=== PATIENT | female | born 2000 | race African-American/Black ===

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

== ENCOUNTER 2018-02-23 15:05 | Inpatient (IN) | payer OTHER ==
[2018-02-23] MEDS ORDERED: NORMAL SALINE 1000 ML 1,000 ML IV ONE (15:21)
[2018-02-23] MEDS ORDERED: ONDANSETRON HCL INJ/PF 4 MG/2 ML SDV IV ONE (15:21)
[2018-02-23] MEDS ORDERED: KETOROLAC TROMETHAMINE INJ/PF 30 MG/1 ML SDV IV ONE (15:21)
--- NOTE | 2018-02-23 15:22 | ER Document Report ---
Addendum entered and electronically signed by ARMAAN LITTLEJOHN PA-C 03/01/18 01:11: Discharge - Discharge Clinical Impression: Nausea vomiting and diarrhea, Cough, Viral illness Condition: Stable Disposition: ADMITTED INPATIENT Addendum entered and electronically signed by SARA MOSES NP 02/25/18 20:48: Discharge - Discharge Clinical Impression: Nausea vomiting and diarrhea, Cough, Viral illness Condition: Stable Disposition: ADMITTED INPATIENT Original Note: ED General - General Mode of Arrival: Ambulatory Information source: Patient TRAVEL OUTSIDE OF THE [place] IN LAST 30 DAYS: No - HPI Onset: Other - 3 weeks Onset/Duration: Persistent Quality of pain: Achy, Pressure Pain Level: 3 Associated symptoms: Body/muscle aches, Chest pain, Productive cough, Diarrhea, Fever, Vomiting. denies: Leg swelling, Nausea, Shortness of breath Exacerbated by: Denies Relieved by: Denies Similar symptoms previously: No Recently seen / treated by doctor: No <SARA MOSES - Last Filed: 02/23/18 21:12> <ARMAAN LITTLEJOHN - Last Filed: 02/24/18 00:33> - General Chief Complaint: Flu Symptoms Stated Complaint: COUGH,CONGESTION,VOMITING Time Seen by Provider: 02/23/18 15:11 Notes: Patient presents complaining of nausea vomiting diarrhea for the past 3 weeks. Yesterday patient had a fever of 102. Patient reports cough that just started as well. Patient does complain of some anterior chest tenderness. (SARA MOSES) - Related Data Allergies/Adverse Reactions: No Known Allergies Allergy (Verified 04/18/17 14:06) Past Medical History - General Information source: Patient - Social History Smoking Status: Never Smoker Frequency of alcohol use: None Drug Abuse: None Occupation: None Family History: Arthritis, DM, Hypertension, Other - afib, ards - Past Medical History Cardiac Medical History: Denies: Hx Coronary Artery Disease, Hx Heart Attack, Hx Hypertension Pulmonary Medical History: Reports: Hx Asthma - QVAR Denies: Hx Bronchitis, Hx COPD, Hx Pneumonia Neurological Medical History: Denies: Hx Cerebrovascular Accident, Hx Seizures Renal/ Medical History: Denies: Hx Peritoneal Dialysis GI Medical History: Reports: Hx Gastroesophageal Reflux Disease Musculoskeletal Medical History: Denies Hx Arthritis, Reports Hx Musculoskeletal Trauma - ankle Skin Medical History: Reports Hx Eczema Traumatic Medical History: Reports: Hx Fractures - ankle Past Surgical History: Reports: Hx Adenoidectomy, Hx Oral Surgery, Hx Tonsillectomy - Immunizations Immunizations up to date: Yes Hx Diphtheria, Pertussis, Tetanus Vaccination: Yes <SARA MOSES - Last Filed: 02/23/18 21:12> Review of Systems - Review of Systems Constitutional: Fever EENT: No symptoms reported Cardiovascular: Chest pain. denies: Dizziness, Lightheaded Respiratory: Cough, Sputum. denies: Short of breath Gastrointestinal: Diarrhea, Nausea, Vomiting. denies: Abdominal pain Genitourinary: No symptoms reported. denies: Dysuria Female Genitourinary: No symptoms reported Musculoskeletal: No symptoms reported. denies: Leg swelling Skin: No symptoms reported Hematologic/Lymphatic: No symptoms reported Neurological/Psychological: No symptoms reported. denies: Headaches <SARA MOSES - Last Filed: 02/23/18 21:12> Physical Exam - General General appearance: Appears well, Alert In distress: None - HEENT Head: Normocephalic, Atraumatic Eyes: Normal Conjunctiva: Normal Nasal: Normal Mouth/Lips: Normal Mucous membranes: Dry Pharynx: Erythema. No: Exudate, Peritonsillar abscess, Tonsillar hypertrophy Neck: Normal, Supple. No: Lymphadenopathy, Meningismus - Respiratory Respiratory status: No respiratory distress Chest status: Pain with cough Breath sounds: Productive cough. No: Rales, Rhonchi, Stridor, Wheezing Chest palpation: Normal. No: Tender - Cardiovascular Rhythm: Regular, Tachycardia Heart sounds: S1 appreciated, S2 appreciated Murmur: No - Abdominal Inspection: Morbidly Obese Distension: No distension Bowel sounds: Normal Tenderness: Nontender Organomegaly: No organomegaly - Back Back: Normal, Nontender. No: CVA tenderness - Extremities General upper extremity: Normal inspection, Normal strength General lower extremity: Normal inspection, Normal strength - Neurological Neuro grossly intact: Yes Cognition: Normal Judd Coma Scale Eye Opening: Spontaneous [place] Coma Scale Verbal: Oriented [place] Coma Scale Motor: Obeys Commands [place] Coma Scale Total: 15 - Psychological Associated symptoms: Normal affect, Normal mood - Skin Skin Temperature: Warm Skin Moisture: Dry Skin Color: Normal <[email or web address] - Last Filed: 02/23/18 21:12> - Vital signs Vitals: Temp Pulse Resp BP Pulse Ox 98.5 F 125 H 20 149/94 H 100 02/23/18 15:10 02/23/18 15:10 02/23/18 15:10 02/23/18 15:10 02/23/18 15:10 Course - Laboratory Result Diagrams: 02/23/18 17:35 02/23/18 17:35 - Diagnostic Test Radiology reviewed: Reports reviewed - EKG Interpretation by Me EKG shows normal: Sinus rhythm Rate: Tachycardia When compared to previous EKG there are: Previous EKG unavailable <SARA MOSES - Last Filed: 02/23/18 21:12> - Laboratory Result Diagrams: 02/23/18 17:35 02/23/18 17:35 <ARMAAN LITTLEJOHN - Last Filed: 02/24/18 00:33> - Re-evaluation Re-evalutation: 02/23/18 18:51 Patient's abdomen soft nontender. Patient nontoxic in appearance. No vomiting during ER stay. Chest x-ray reviewed, no concern for pneumonia. Will treat symptomatically at this time with good return precautions. 02/23/18 19:56 No concern for PE at this time. Patient with no elevation in d-dimer. Tachycardia treated with additional liter of IV fluids at this time. Suspect likely viral etiology at this time. 02/23/18 21:07 She continues tachycardic prior to discharge. Consulted with Dr. Merrill regarding patient presentation, reviewed diagnostic evaluation. Recommends offering discharged with outpatient follow-up tomorrow for recheck or adding on cardiac enzyme testing to evaluate for possible pericarditis or myocarditis. Recommends that if patient has abnormal cardiac enzymes or BNP that she should likely be admitted for echocardiogram to be performed. Discussed this with patient, patient agreeable with staying and waiting for additional lab test to be performed at this time. 02/23/18 21:17 Bedside report and handoff given to David Owen. (SARA MOSES) 02/23/18 22:13 Troponin was negative. BNP 156, unremarkable. TSH undetectable. T3/T4 obtained and T4 level was 7 and free T3 level was greater than 22.8. Consulted Dr. Solis, on-call hospitalist he agreed to accept patient for full admission to telemetry unit. 02/24/18 00:33 (ARMAAN LITTLEJOHN) - Vital Signs Vital signs: Temp Pulse Resp BP Pulse Ox 98.0 F 105 H 20 147/90 H 99 02/24/18 00:27 02/24/18 00:27 02/23/18 20:28 02/24/18 00:27 02/24/18 00:27 - Laboratory Laboratory results interpreted by me: 02/23/18 02/23/18 02/23/18 17:35 17:35 17:35 MCV 77 L MCH 25.4 L RDW 14.2 H Chloride 109 H Creatinine 0.37 L AST 37 H ALT 58 H NT-Pro-B Natriuret Pep 176 H TSH Free T4 Free T3 pg/mL Urine Ketones Urine Ascorbic Acid 02/23/18 02/23/18 02/23/18 17:35 17:35 17:56 MCV MCH RDW Chloride Creatinine AST ALT NT-Pro-B Natriuret Pep TSH < 0.01 L Free T4 6.87 H Free T3 pg/mL > 22.80 H Urine Ketones 20 H Urine Ascorbic Acid 40 H Labs- Entire Visit 02/23/18 02/23/18 02/23/18 16:25 16:25 17:35 WBC 9.4 RBC 5.27 Hgb 13.4 Hct 40.3 MCV 77 L MCH 25.4 L MCHC 33.3 RDW 14.2 H Plt Count 312 Seg Neutrophils % 59.2 Lymphocytes % 26.8 Monocytes % 9.5 Eosinophils % 3.9 Basophils % 0.6 Absolute Neutrophils 5.6 Absolute Lymphocytes 2.5 Absolute Monocytes 0.9 Absolute Eosinophils 0.4 Absolute Basophils 0.1 Sodium Potassium Chloride Carbon Dioxide Anion Gap BUN Creatinine Est GFR ( Amer) Est GFR (Non-Af Amer) Glucose Calcium Total Bilirubin Direct Bilirubin Neonat Total Bilirubin Neonat Direct Bilirubin Neonat Indirect Bili AST ALT Alkaline Phosphatase Total Protein Albumin Lipase Serum HCG, Qual Urine Color Urine Appearance Urine pH Ur Specific [place] Urine Protein Urine Glucose (UA) Urine Ketones Urine Blood Urine Nitrite Urine Bilirubin Urine Urobilinogen Ur Leukocyte Esterase Urine WBC (Auto) Urine RBC (Auto) Squamous Epi Cells Auto Urine Mucus (Auto) Urine Ascorbic Acid Influenza A (Rapid) NEGATIVE Influenza B (Rapid) NEGATIVE Group A Strep Rapid NEGATIVE 02/23/18 02/23/18 02/23/18 17:35 17:35 17:56 WBC RBC Hgb Hct MCV MCH MCHC RDW Plt Count Seg Neutrophils % Lymphocytes % Monocytes % Eosinophils % Basophils % Absolute Neutrophils Absolute Lymphocytes Absolute Monocytes Absolute Eosinophils Absolute Basophils Sodium 141.4 Potassium 4.2 Chloride 109 H Carbon Dioxide 23 Anion Gap 9 BUN 11 Creatinine 0.37 L Est GFR ( Amer) > 60 Est GFR (Non-Af Amer) > 60 Glucose 85 Calcium 9.6 Total Bilirubin 0.4 Direct Bilirubin 0.2 Neonat Total Bilirubin Not Reportable Neonat Direct Bilirubin Not Reportable Neonat Indirect Bili Not Reportable AST 37 H ALT 58 H Alkaline Phosphatase 82 Total Protein 6.7 Albumin 3.9 Lipase 88.0 Serum HCG, Qual NEGATIVE Urine Color YELLOW Urine Appearance SLIGHTLY-CLOUDY Urine pH 6.0 Ur Specific [place] 1.024 Urine Protein NEGATIVE Urine Glucose (UA) NEGATIVE Urine Ketones 20 H Urine Blood NEGATIVE Urine Nitrite NEGATIVE Urine Bilirubin NEGATIVE Urine Urobilinogen NEGATIVE Ur Leukocyte Esterase NEGATIVE Urine WBC (Auto) 4 Urine RBC (Auto) 1 Squamous Epi Cells Auto 12 Urine Mucus (Auto) RARE Urine Ascorbic Acid 40 H Influenza A (Rapid) Influenza B (Rapid) Group A Strep Rapid (SARA MOSES) - EKG Interpretation by Me Additional EKG results interpreted by me: 02/23/18 21:[address] elevation concerning for possible repolarization pattern. QTC [id number] (SARA MOSES) Discharge <SARA MOSES - Last Filed: 02/23/18 21:12> - Discharge Unit Admitted: Telemetry <ARMAAN LITTLEJOHN - Last Filed: 02/24/18 00:33> - Discharge Clinical Impression: Nausea vomiting and diarrhea, Cough, Viral illness Condition: Stable Disposition: ADMITTED INPATIENT Instructions: Acetaminophen, Antinausea Medication ([facility]), Diarrhea, Nonspecific ([facility]), Intravenous (IV) Fluids ([facility]), Viral Syndrome ([facility]), Vomiting ([facility]) Additional Instructions: Return immediately for any new or worsening symptoms Followup with your primary care provider, call tomorrow to make a followup appointment Prescriptions: Naproxen [Naprosyn 250 Nmg Tablet] 1 tab PO BID #14 tablet Ondansetron HCl [Zofran 4 mg Tablet] 1 - 2 tab PO Q6 PRN #15 tablet PRN Reason: [facility] - Follow up as needed
--- NOTE | 2018-02-23 15:49 | RADIOLOGY REPORT (SQ) ---
EXAM DESCRIPTION: CHEST 2 VIEWS COMPLETED DATE/TIME: 02/23/2018 3:39 pm REASON FOR STUDY: fever, cough COMPARISON: None. TECHNIQUE: Frontal and lateral radiographic views of the chest acquired. NUMBER OF VIEWS: Two view. LIMITATIONS: None. FINDINGS: LUNGS AND PLEURA: No opacities, masses or pneumothorax. No pleural effusion. MEDIASTINUM AND HILAR STRUCTURES: No masses or contour abnormalities. HEART AND VASCULAR STRUCTURES: Heart normal size. No evidence for failure. BONES: No acute findings. HARDWARE: None in the chest. OTHER: No other significant finding. IMPRESSION: NO SIGNIFICANT RADIOGRAPHIC FINDING IN THE CHEST. TECHNICAL DOCUMENTATION: JOB ID: [id number] [employer]- All Rights Reserved Reading location - IP/workstation name: [email or web address]
[2018-02-23 16:56] LABS: A TYPE INFLUENZA AG NEGATIVE (NEGATIVE); B INFLUENZA AG NEGATIVE (NEGATIVE)
[2018-02-23 17:45] LABS: ABSOLUTE BASOPHILS # (AUTO) 0.1 10^3/uL (0.0-0.2); ABSOLUTE EOSINOPHILS # (AUTO) 0.4 10^3/uL (0.0-0.6); ABSOLUTE LYMPHOCYTES (AUTO) 2.5 10^3/uL (0.5-4.7); ABSOLUTE MONOCYTES (AUTO) 0.9 10^3/uL (0.1-1.4); ABSOLUTE NEUT (AUTO) 5.6 10^3/uL (1.7-8.2); BASOPHILS % (AUTO) 0.6 % (0-2); EOSINOPHILS % (AUTO) 3.9 % (0-6); HEMATOCRIT 40.3 % (36.0-47.0); HEMOGLOBIN 13.4 g/dL (12.0-15.5); LYMPHOCYTES % (AUTO) 26.8 % (13-45); MEAN CORPUSCULAR HEMOGLOBIN 25.4 pg (27.0-33.4); MEAN CORPUSCULAR HGB CONC 33.3 g/dL (32.0-36.0); MEAN CORPUSCULAR VOLUME 77 fl (80-97); MONOCYTES % (AUTO) 9.5 % (3-13); PLATELET COUNT 312 10^3/uL (150-450); RED BLOOD COUNT 5.27 10^6/uL (3.72-5.28); RED CELL DISTRIBUTION WIDTH 14.2 % (11.5-14.0); SEGMENTED NEUTROPHILS % (AUTO) 59.2 % (42-78); TOTAL CELLS COUNTED % (AUTO) 100 %; WHITE BLOOD COUNT 9.4 10^3/uL (4.0-10.5)
[2018-02-23 18:05] LABS: ALANINE AMINOTRANSFERASE 58 U/L (9-52); ALBUMIN 3.9 g/dL (3.5-5.0); ALKALINE PHOSPHATASE 82 U/L (38-126); ANION GAP 9 (5-19); ASPARTATE AMINO TRANSFERASE 37 U/L (14-36); BILIRUBIN,DIRECT 0.2 mg/dL (0.0-0.4); BILIRUBIN,TOTAL 0.4 mg/dL (0.2-1.3); BLOOD UREA NITROGEN 11 mg/dL (7-20); CALCIUM 9.6 mg/dL (8.4-10.2); CARBON DIOXIDE 23 mmol/L (22-30); CHLORIDE 109 mmol/L (98-107); GLUCOSE 85 mg/dL (75-110); POTASSIUM 4.2 mmol/L (3.6-5.0); SODIUM 141.4 mmol/L (137-145); TOTAL PROTEIN 6.7 g/dL (6.3-8.2)
[2018-02-23 18:11] LABS: APPEARANCE,URINE SLIGHTLY-CLOUDY; BILIRUBIN,URINE NEGATIVE (NEGATIVE); COLOR,URINE YELLOW; GLUCOSE, URINE NEGATIVE (NEGATIVE); KETONES,URINE 20 mg/dL (NEGATIVE); LEUKOCYTE ESTERASE,URINE NEGATIVE (NEGATIVE); NITRITE,URINE NEGATIVE (NEGATIVE); PROTEIN,URINE NEGATIVE (NEGATIVE); URINE SPECIFIC GRAVITY 1.024; UROBILINOGEN,URINE NEGATIVE mg/dL (<2.0)
[2018-02-23] MEDS ORDERED: RINGERS SOLUTION,LACTATED 1,000 ML IV ONE (18:59)
[2018-02-23] MEDS ORDERED: HYDROCODONE/ACETAMINOPHEN 5-325 MG TABLET PO ONE (19:05)
--- NOTE | 2018-02-23 19:26 | EKG REPORT ---
SEVERITY:- ABNORMAL ECG - SINUS TACHYCARDIA PROBABLE LEFT VENTRICULAR HYPERTROPHY ST ELEV, PROBABLE NORMAL EARLY REPOL PATTERN : Confirmed by: Candy Kearney 23-Feb-2018 19:25:23
[2018-02-23 21:52] LABS: NT PRO BNP 176 pg/mL (<125)
[2018-02-23 21:53] LABS: CREATINE KINASE MB < 0.22 ng/mL (<4.55); TROPONIN I < 0.012 ng/mL
[2018-02-23 23:00] LABS: FREE T4 (FREE THYROXINE) 6.87 ng/dL (0.78-2.19)
[2018-02-23 23:06] LABS: FREE T3 > 22.80 pg/mL (2.77-5.27)
[2018-02-24] MEDS ORDERED: NORMAL SALINE 1000 ML 1,000 ML IV ONE (00:27)
[2018-02-24] MEDS ORDERED: ACETAMINOPHEN 325 MG TABLET PO PRN (00:42)
[2018-02-24] MEDS ORDERED: MAG HYDROX/AL HYDROX/SIMETH SUSP 30 ML UDCUP PO PRN (00:42)
[2018-02-24] MEDS ORDERED: ONDANSETRON HCL INJ/PF 4 MG/2 ML SDV IV PRN (00:42)
[2018-02-24] MEDS ORDERED: PROPRANOLOL HCL 20 MG TABLET PO ONE (00:45)
[2018-02-24 01:02] LABS: URINE AMPHETAMINES SCREEN NEGATIVE; URINE BARBITURATES SCREEN NEGATIVE; URINE BENZODIAZEPINES SCREEN NEGATIVE; URINE COCAINE SCREEN NEGATIVE; URINE MARIJUANA (THC) SCREEN NEGATIVE; URINE METHADONE SCREEN NEGATIVE; URINE PHENCYCLIDINE SCREEN NEGATIVE
[2018-02-24] MEDS: HEPARIN SOD (PORCINE) 5,000 UNIT/ML 1 ML SYRINGE SUBCUT SCH ×3 (05:15→22:49)
[2018-02-24] MEDS: METHIMAZOLE 5 MG TABLET PO SCH ×3 (05:15→22:51)
--- NOTE | 2018-02-24 05:31 | PDOC H&P ---
History of Present Illness Admission Date/PCP: 02/24/18 01:51 Patient complains of: Viral prodrome History of Present Illness: KARI MIRZA is a 18 year old female with past medical history of asthma, GERD and eczema. She presents with 3 weeks of viral prodrome with arthralgia and nausea developed fever prompting evaluation in the emergency room where she has an unremarkable workup but during evaluation of tachycardia is found to have an undetected TSH and a T3 greater than 22. She is referred to the hospitalist for admission. She denies palpitations, heat or cold intolerance but has an obvious goiter. She denies family history, recreational drugs, [id number] medications, diet or weight loss supplementation. Past Medical History Cardiac Medical History: Denies: Coronary Artery Disease, Myocardial Infarction, Hypertension Pulmonary Medical History: Reports: Asthma - QVAR Denies: Bronchitis, Chronic Obstructive Pulmonary Disease (COPD), Pneumonia Neurological Medical History: Denies: Seizures GI Medical History: Reports: Gastroesophageal Reflux Disease Musculoskeltal Medical History: Denies: Arthritis Skin Medical History: Reports: Eczema Hematology: Denies: Anemia Past Surgical History Past Surgical History: Reports: Adenoidectomy, Tonsillectomy Social History Information Source: Patient Smoking Status: Never Smoker Frequency of Alcohol Use: None Hx Recreational Drug Use: No Drugs: None Hx Prescription Drug Abuse: No - Advance Directive Resuscitation Status: Full Code Family History Family History: Arthritis, DM, Hypertension, Other - afib, ards Parental Family History Reviewed: Yes Children Family History Reviewed: Yes Sibling(s) Family History Reviewed.: Yes Medication/Allergy Home Medications: Albuterol Sulfate [Proair Hfa] 2 puff IN Q6HP PRN 10/30/16 Beclomethasone Dipropionate [Qvar] 160 mcg IN Q12 10/30/16 Montelukast Sodium [Singulair 10 mg Tablet] 10 mg PO DAILY 10/30/16 Cetirizine HCl [Zyrtec] 10 mg PO DAILY 01/20/17 Cyclobenzaprine HCl [Flexeril 10 mg Tablet] 10 mg PO TIDP PRN #15 tab 04/18/17 Etodolac [Lodine] 400 mg PO BID #14 tablet 04/18/17 Naproxen [Naprosyn 250 Nmg Tablet] 1 tab PO BID #14 tablet 02/23/18 Ondansetron HCl [Zofran 4 mg Tablet] 1 - 2 tab PO Q6 PRN #15 tablet 02/23/18 Allergies/Adverse Reactions: No Known Allergies Allergy (Verified 04/18/17 14:06) Review of Systems Constitutional: PRESENT: as per HPI, fatigue, fever(s). ABSENT: anorexia, chills Eyes: ABSENT: visual disturbances Ears: ABSENT: hearing changes Cardiovascular: ABSENT: chest pain, dyspnea on exertion, edema, orthropnea, palpitations Respiratory: ABSENT: cough, hemoptysis Gastrointestinal: ABSENT: abdominal pain, constipation, diarrhea, hematemesis, hematochezia, nausea, vomiting Genitourinary: ABSENT: dysuria, hematuria Musculoskeletal: ABSENT: joint swelling Integumentary: ABSENT: rash, wounds Neurological: ABSENT: abnormal gait, abnormal speech, confusion, dizziness, focal weakness, syncope Psychiatric: ABSENT: anxiety, depression, homidical ideation, suicidal ideation Endocrine: ABSENT: cold intolerance, heat intolerance, polydipsia, polyuria Hematologic/Lymphatic: ABSENT: easy bleeding, easy bruising Physical Exam Vital Signs: Temp Pulse Resp BP Pulse Ox 98.0 F 121 H 30 H 147/90 H 99 02/24/18 00:27 02/24/18 03:58 02/24/18 04:00 02/24/18 00:27 02/24/18 04:00 Intake & Output 02/22/18 02/23/18 02/24/18 11:59 11:59 11:59 Intake Total 3000 Balance 3000 Weight 91 kg General appearance: PRESENT: cooperative, mild distress, obese. ABSENT: disheveled Head exam: PRESENT: atraumatic, normocephalic Eye exam: PRESENT: conjunctiva pink, EOMI, PERRLA. ABSENT: scleral icterus Ear exam: PRESENT: normal external ear exam Mouth exam: PRESENT: moist, tongue midline Neck exam: PRESENT: full ROM, thyromegaly. ABSENT: JVD, lymphadenopathy, tenderness, tracheal deviation Respiratory exam: PRESENT: clear to auscultation corie. ABSENT: rales, rhonchi, wheezes Cardiovascular exam: PRESENT: RRR, tachycardia. ABSENT: diastolic murmur, rubs, systolic murmur Pulses: PRESENT: normal dorsalis pedis pul Vascular exam: PRESENT: normal capillary refill GI/Abdominal exam: PRESENT: normal bowel sounds, soft. ABSENT: distended, guarding, mass, organolmegaly, rebound, tenderness Rectal exam: PRESENT: deferred Extremities exam: PRESENT: full ROM. ABSENT: calf tenderness, clubbing, pedal edema Neurological exam: PRESENT: alert, awake, oriented to person, oriented to place, oriented to time, oriented to situation, CN II-XII grossly intact. ABSENT: motor sensory deficit Psychiatric exam: PRESENT: appropriate affect, normal mood. ABSENT: homicidal ideation, suicidal ideation Skin exam: PRESENT: dry, intact, warm. ABSENT: cyanosis, rash Results Laboratory Results: 02/23/18 17:35 02/23/18 17:35 02/23/18 02/23/18 02/23/18 17:35 17:35 17:35 WBC 9.4 RBC 5.27 Hgb 13.4 Hct 40.3 MCV 77 L MCH 25.4 L MCHC 33.3 RDW 14.2 H Plt Count 312 Seg Neutrophils % 59.2 Lymphocytes % 26.8 Monocytes % 9.5 Eosinophils % 3.9 Basophils % 0.6 Absolute Neutrophils 5.6 Absolute Lymphocytes 2.5 Absolute Monocytes 0.9 Absolute Eosinophils 0.4 Absolute Basophils 0.1 Sodium 141.4 Potassium 4.2 Chloride 109 H Carbon Dioxide 23 Anion Gap 9 BUN 11 Creatinine 0.37 L Est GFR ( Amer) > 60 Est GFR (Non-Af Amer) > 60 Glucose 85 Calcium 9.6 Total Bilirubin 0.4 AST 37 H ALT 58 H Alkaline Phosphatase 82 C-Reactive Protein Total Protein 6.7 Albumin 3.9 Lipase 88.0 TSH Free T4 Free T3 pg/mL Serum HCG, Qual NEGATIVE Urine Color Urine Appearance Urine pH Ur Specific [place] Urine Protein Urine Glucose (UA) Urine Ketones Urine Blood Urine Nitrite Ur Leukocyte Esterase Urine WBC (Auto) Urine RBC (Auto) 02/23/18 02/23/18 02/23/18 17:35 17:35 17:35 WBC RBC Hgb Hct MCV MCH MCHC RDW Plt Count Seg Neutrophils % Lymphocytes % Monocytes % Eosinophils % Basophils % Absolute Neutrophils Absolute Lymphocytes Absolute Monocytes Absolute Eosinophils Absolute Basophils Sodium Potassium Chloride Carbon Dioxide Anion Gap BUN Creatinine Est GFR ( Amer) Est GFR (Non-Af Amer) Glucose Calcium Total Bilirubin AST ALT Alkaline Phosphatase C-Reactive Protein 17.4 H Total Protein Albumin Lipase TSH < 0.01 L Free T4 6.87 H Free T3 pg/mL > 22.80 H Serum HCG, Qual Urine Color Urine Appearance Urine pH Ur Specific [place] Urine Protein Urine Glucose (UA) Urine Ketones Urine Blood Urine Nitrite Ur Leukocyte Esterase Urine WBC (Auto) Urine RBC (Auto) 02/23/18 17:56 WBC RBC Hgb Hct MCV MCH MCHC RDW Plt Count Seg Neutrophils % Lymphocytes % Monocytes % Eosinophils % Basophils % Absolute Neutrophils Absolute Lymphocytes Absolute Monocytes Absolute Eosinophils Absolute Basophils Sodium Potassium Chloride Carbon Dioxide Anion Gap BUN Creatinine Est GFR ( Amer) Est GFR (Non-Af Amer) Glucose Calcium Total Bilirubin AST ALT Alkaline Phosphatase C-Reactive Protein Total Protein Albumin Lipase TSH Free T4 Free T3 pg/mL Serum HCG, Qual Urine Color YELLOW Urine Appearance SLIGHTLY-CLOUDY Urine pH 6.0 Ur Specific [place] 1.024 Urine Protein NEGATIVE Urine Glucose (UA) NEGATIVE Urine Ketones 20 H Urine Blood NEGATIVE Urine Nitrite NEGATIVE Ur Leukocyte Esterase NEGATIVE Urine WBC (Auto) 4 Urine RBC (Auto) 1 02/23/18 02/23/18 17:35 17:35 Creatine Kinase 54 CK-MB (CK-2) < 0.22 Troponin I < 0.012 NT-Pro-B Natriuret Pep 176 H Impressions: Chest X-Ray 02/23/18 15:20 IMPRESSION: NO SIGNIFICANT RADIOGRAPHIC FINDING IN THE CHEST. Assessment & Plan - Diagnosis (1) Graves disease Is this a current diagnosis for this admission?: Yes Plan: Propanolol, methimazole, symptomatic management, follow-up radioiodine uptake, thyroid ultrasound, 2D echo. Outpatient endocrinology referral (2) GERD (gastroesophageal reflux disease) Is this a current diagnosis for this admission?: Yes Plan: Proton pump inhibitor. - Time Time Spent: 50 to 70 Minutes
[2018-02-24] MEDS: LANSOPRAZOLE 30 MG TAB.RAP.DR PO SCH ×2 (06:57→17:19)
[2018-02-24] MEDS: LEVALBUTEROL HCL NEB 1.25 MG/3 ML AMPUL NEB SCH ×2 (08:58→16:06)
[2018-02-24] MEDS: PROPRANOLOL HCL 20 MG TABLET PO SCH ×2 (09:33→22:50)
[2018-02-24] MEDS: DOCUSATE SODIUM 100 MG CAPSULE PO SCH ×2 (09:33→17:19)
--- NOTE | 2018-02-24 10:10 | RADIOLOGY REPORT (SQ) ---
EXAM DESCRIPTION: U/S THYROID/SFT TISS HD NECK COMPLETED DATE/TIME: 02/24/2018 4:50 am REASON FOR STUDY: graves goiter COMPARISON: None. TECHNIQUE: Dynamic and static cruz-scale images acquired of the thyroid gland. Selected additional c olor/power Doppler images recorded. All images stored to PACS. LIMITATIONS: None. FINDINGS: RIGHT LOBE: 5.8 x 2.7 x 2.8 cm. Very heterogeneous parenchyma with generally nodular cont ours. No cystic or solid masses. LEFT LOBE: 5.9 x 2.5 x 2.6 cm. Very heterogeneous parenchyma with generally nodular contours. No cy stic or solid masses. ISTHMUS: 1.4 cm thickness. Heterogeneous echo pattern. No cystic or solid masses. OTHER: No other significant finding. IMPRESSION: 1. Enlarged heterogeneous appearing thyroid. No discrete mass identified. TECHNICAL DOCUMENTATION: JOB ID: [id number] [employer]- All Rights Reserved Reading location - IP/workstation name: [email or web address]
[2018-02-24] MEDS ORDERED: BECLOMETHASONE DIPROPIONATE IH SCH ×2 (14:00→18:00)
--- NOTE | 2018-02-24 16:57 | Progress Note ---
Provider Note Provider Note: The patient is a 18-year-old female with a past medical history of asthma, GERD, and eczema who was admitted overnight by the [employer] OPERATOR for hyperthyroidism presumed to be Graves' disease. Overnight events, nursing notes, vital signs, laboratory workup, and plan of care as established by the previous provider were reviewed. Agree with the plan of care as set forth. (1) Graves disease Undetectable TSH, free T4 6.87, free T3 >22.80 ESR 27, CRP 17.4 Thyroid U/S demonstrated an enlarged heterogeneous appearing thyroid with no discrete masses identified. Echocardiogram has been completed; finalized report is pending. Radioiodine uptake study underway. Thyroid antibodies pending. Continue propanolol, methimazole, and symptomatic management. Outpatient endocrinology referral. (2) GERD (gastroesophageal reflux disease) Proton pump inhibitor. (3) Asthma Resume the patient's home dose Qvar and Singulair. Nebulizer treatments as needed.
[2018-02-24] MEDS: MONTELUKAST SODIUM 10 MG TABLET PO SCH (17:19)
--- NOTE | 2018-02-24 17:50 | XCELERA REPORT ---
[address] [address] Transthoracic Echocardiogram Report Name: KARI MIRZA Age: 18 yrs Gender: Female : 2000 Patient Status: Inpatient Patient Location: [address] [place] [address] Study Date: 02/24/2018 11:20 AM Height: 67 in Weight: 200 lb BSA: 2.0 m2 Procedure: A complete two-dimensional transthoracic echocardiogram was performed (2D, M-mode, spectral and color flow Doppler). The study was technically adequate with some images being suboptimal in quality. 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 There is borderline concentric left ventricular hypertrophy. The left ventricle is grossly normal size. Doppler measurements suggest normal left ventricular diastolic function Wall motion cannot be accurately commented on, but no definite regional wall motion abnormalities noted. The right ventricular systolic function is normal. The left atrial size is normal. The right atrium is normal. There is a mild amount of mitral regurgitation There is no mitral valve stenosis. No aortic regurgitation is present. There is no aortic valve stenosis There is a trace or physiologic amount of tricuspid regurgitation There is no tricuspid stenosis. The aortic root is not well visualized but is probably normal size. The inferior vena cava appeared normal and decreased > 50% with respiration (RAP 5-10 mmHg) There is no pericardial effusion. MMode/2D Measurements & Calculations RVDd: 2.7 cm LVIDd: 4.4 cm FS: 37.0 % Ao root diam: 1.8 cm IVSd: 0.87 cm LVIDs: 2.7 cm EDV(Teich): 85.9 ml Ao root area: 2.6 cm2 LVPWd: 0.87 cm ESV(Teich): 28.2 ml LA dimension: 3.3 cm EF(Teich): 67.1 % Doppler Measurements & Calculations MV E max monika: MV P1/2t max monika: Ao V2 max: LV V1 max P.1 cm/sec 108.6 cm/sec 174.4 cm/sec 7.6 mmHg MV A max monika: MV P1/2t: 52.3 msec Ao max PG: LV V1 max: 42.4 cm/sec MVA(P1/2t): 4.2 cm2 12.2 mmHg 137.7 cm/sec MV E/A: 2.5 MV dec slope: 608.4 cm/sec2 MV dec time: 0.18 sec PA V2 max: TR max monika: MV P1/2t-pr_phl: 105.1 cm/sec 287.8 cm/sec 52.3 msec PA max P.4 mmHgTR max P.1 mmHg Left Ventricle The left ventricle is grossly normal size. There is borderline concentric left ventricular hypertrophy. The left ventricular ejection fraction is normal. Doppler measurements suggest normal left ventricular diastolic function. Wall motion cannot be accurately commented on, but no definite regional wall motion abnormalities noted. Right Ventricle The right ventricle is grossly normal size. There is normal right ventricular wall thickness. The right ventricular systolic function is normal. Atria The right atrium is normal. The left atrial size is normal. Interarterial septum not well visualized and not well dopplered. Cannot comment on ASD/PFO presence. Mitral Valve The mitral valve is grossly normal. There is no mitral valve stenosis. There is a mild amount of mitral regurgitation. Aortic Valve The aortic valve is not well visualized secondary to technical limitations. There is no aortic valve stenosis. No aortic regurgitation is present. Tricuspid Valve The tricuspid valve is not well visualized secondary to technical limitations. There is no tricuspid stenosis. There is a trace or physiologic amount of tricuspid regurgitation. Pulmonic Valve The pulmonic valve is not well visualized. Great Vessels The aortic root is not well visualized but is probably normal size. The inferior vena cava appeared normal and decreased > 50% with respiration (RAP 5-10 mmHg). Effusions There is no pericardial effusion. : PAIGE DORSEY > Candy Kearney
[2018-02-25] MEDS: LEVALBUTEROL HCL NEB 1.25 MG/3 ML AMPUL NEB SCH ×4 (00:10→23:44)
[2018-02-25] MEDS: METHIMAZOLE 5 MG TABLET PO SCH ×3 (06:09→21:39)
[2018-02-25] MEDS: LANSOPRAZOLE 30 MG TAB.RAP.DR PO SCH ×2 (06:09→17:20)
[2018-02-25] MEDS: HEPARIN SOD (PORCINE) 5,000 UNIT/ML 1 ML SYRINGE SUBCUT SCH ×3 (06:10→21:37)
[2018-02-25 08:46] LABS: THYROID PEROXIDASE (TPO) AB >600 IU/mL (0-34)
[2018-02-25] MEDS: DOCUSATE SODIUM 100 MG CAPSULE PO SCH ×2 (09:28→17:20)
[2018-02-25 10:30] LABS: THYROGLOBULIN AB SO 6.1 IU/mL (0.0-0.9)
[2018-02-25] MEDS: PROPRANOLOL HCL 20 MG TABLET PO SCH ×2 (13:15→21:38)
--- NOTE | 2018-02-25 16:49 | PDOC PROGRESS REPORT ---
Subjective Progress Note for:: 02/25/18 Reason For Visit: THYROID STORM Physical Exam Vital Signs: Temp Pulse Resp BP Pulse Ox 98.0 F 106 H 16 139/73 H 100 02/25/18 15:17 02/25/18 15:17 02/25/18 15:17 02/25/18 15:17 02/25/18 15:17 Intake & Output 02/24/18 02/25/18 02/26/18 06:59 06:59 06:59 Intake Total 3000 827 0 Output Total 0 Balance 3000 827 0 Weight 94.8 kg 92.7 kg General appearance: PRESENT: no acute distress, cooperative, well-developed, well-nourished - Overweight Head exam: PRESENT: atraumatic, normocephalic Eye exam: PRESENT: conjunctiva pink, EOMI, PERRLA. ABSENT: scleral icterus Ear exam: PRESENT: normal external ear exam Mouth exam: PRESENT: moist, tongue midline Neck exam: PRESENT: thyromegaly. ABSENT: carotid bruit, JVD, lymphadenopathy Respiratory exam: PRESENT: clear to auscultation corie, symmetrical, unlabored. ABSENT: rales, rhonchi, wheezes Cardiovascular exam: PRESENT: RRR, +S1, +S2, tachycardia. ABSENT: diastolic murmur, rubs, systolic murmur Pulses: PRESENT: normal dorsalis pedis pul Vascular exam: PRESENT: normal capillary refill GI/Abdominal exam: PRESENT: normal bowel sounds, soft. ABSENT: distended, guarding, mass, organolmegaly, rebound, tenderness Rectal exam: PRESENT: deferred Extremities exam: PRESENT: full ROM. ABSENT: calf tenderness, clubbing, pedal edema Neurological exam: PRESENT: alert, awake, oriented to person, oriented to place, oriented to time, oriented to situation, CN II-XII grossly intact. ABSENT: motor sensory deficit Psychiatric exam: PRESENT: appropriate affect, normal mood. ABSENT: homicidal ideation, suicidal ideation Skin exam: PRESENT: dry, intact, warm. ABSENT: cyanosis, rash Results Laboratory Results: 02/23/18 17:35 02/23/18 17:35 02/23/18 16:25 Throat Throat Culture - Final NORMAL AGUSTIN 02/23/18 02/23/18 17:35 17:35 Creatine Kinase 54 CK-MB (CK-2) < 0.22 Troponin I < 0.012 NT-Pro-B Natriuret Pep 176 H Impressions: Chest X-Ray 02/23/18 15:20 IMPRESSION: NO SIGNIFICANT RADIOGRAPHIC FINDING IN THE CHEST. Thyroid Ultrasound 02/24/18 00:00 IMPRESSION: 1. Enlarged heterogeneous appearing thyroid. No discrete mass identified. Assessment & Plan - Diagnosis (1) Graves disease Is this a current diagnosis for this admission?: Yes Plan: Undetectable TSH, free T4 6.87, free T3 >22.80 ESR 27, CRP 17.4 Thyroid U/S demonstrated an enlarged heterogeneous appearing thyroid with no discrete masses identified. Echocardiogram has been completed; normal exam. Radioiodine uptake study underway. Thyroid antibodies elevated; Thyroglobulin 6.1, Thyroid Peroxidase >600. Continue propanolol; dose increased today. Continue methimazole. Will contact [facility] for additional recommendation and to streamline referral process tomorrow prior to discharge. (2) Tachycardia Is this a current diagnosis for this admission?: Yes Plan: Secondary to #1; plan as above. (3) Asthma Qualifiers: Asthma severity: unspecified severity Asthma persistence: persistent Asthma complication type: uncomplicated Qualified Code(s): J45.909 - Unspecified asthma, uncomplicated Is this a current diagnosis for this admission?: Yes Plan: Resume the patient's home dose Qvar and Singulair. Nebulizer treatments as needed. (4) GERD (gastroesophageal reflux disease) Is this a current diagnosis for this admission?: Yes Plan: Continue PPI. - Time Time Spent with patient: 15-24 minutes Anticipated discharge: Home Within: within 48 hours
[2018-02-25] MEDS: MONTELUKAST SODIUM 10 MG TABLET PO SCH (17:20)
[2018-02-26] MEDS: LANSOPRAZOLE 30 MG TAB.RAP.DR PO SCH (05:42)
[2018-02-26] MEDS: METHIMAZOLE 5 MG TABLET PO SCH ×2 (05:42→13:19)
[2018-02-26] MEDS: HEPARIN SOD (PORCINE) 5,000 UNIT/ML 1 ML SYRINGE SUBCUT SCH ×2 (05:42→13:17)
[2018-02-26] MEDS: PROPRANOLOL HCL 20 MG TABLET PO SCH ×2 (05:43→13:19)
[2018-02-26 06:18] LABS: HEMATOCRIT 37.5 % (36.0-47.0); HEMOGLOBIN 12.2 g/dL (12.0-15.5); MEAN CORPUSCULAR HEMOGLOBIN 25.1 pg (27.0-33.4); MEAN CORPUSCULAR HGB CONC 32.6 g/dL (32.0-36.0); MEAN CORPUSCULAR VOLUME 77 fl (80-97); PLATELET COUNT 237 10^3/uL (150-450); RED BLOOD COUNT 4.86 10^6/uL (3.72-5.28); RED CELL DISTRIBUTION WIDTH 13.9 % (11.5-14.0)
[2018-02-26 06:40] LABS: ANION GAP 10 (5-19); BLOOD UREA NITROGEN 12 mg/dL (7-20); CALCIUM 9.5 mg/dL (8.4-10.2); CARBON DIOXIDE 24 mmol/L (22-30); CHLORIDE 107 mmol/L (98-107); GLUCOSE 100 mg/dL (75-110); POTASSIUM 4.2 mmol/L (3.6-5.0); SODIUM 140.6 mmol/L (137-145)
[2018-02-26] MEDS ORDERED: VANCOMYCIN HCL 0 MG in DEXTROSE 5%-WATER 250 ML IV NR (08:45)
[2018-02-26] MEDS: LEVALBUTEROL HCL NEB 1.25 MG/3 ML AMPUL NEB SCH ×2 (09:01→16:29)
[2018-02-26] MEDS: DOCUSATE SODIUM 100 MG CAPSULE PO SCH (09:34)
[2018-02-26] MEDS ORDERED: VANCOMYCIN HCL 1,250 MG in DEXTROSE 5%-WATER 250 ML IV SCH (10:00)
--- NOTE | 2018-02-26 11:09 | RADIOLOGY REPORT (SQ) ---
EXAM DESCRIPTION: NM THYROID SCAN AND UPTAKE COMPLETED DATE/TIME: 02/26/2018 10:23 am REASON FOR STUDY: graves goiter COMPARISON: None. RADIONUCLIDE AND DOSE: 304 microcuries I-123. The route of agent administration: Oral ADDITIONAL DRUGS AND DOSES: None. TECHNIQUE: Iodine uptake was measured at 4 and 24 hours. Images of the neck were acquired. LIMITATIONS: None. FINDINGS: 4 HOUR UPTAKE RADIO-IODINE: 24.48%. Normal Range of 5-20% [facility] Normal Range of 5-15% [facility] Normal Range of 5-15% [facility] 24 HOUR UPTAKE RADIO-IODINE: 18.39%. Normal Range of 7-35% [facility] Normal Range of 8-35% [facility] Normal Range of 15-30% [facility] SCAN: Homogeneous uptake of the radionuclide throughout both lobes of the gland and isthmus without a reas of increased or decreased activity. Normal size. OTHER: No other significant finding. IMPRESSION: The 4 hour uptake cuff 24.48% is elevated. Normal range at 0400 hours is from 5 to 15%. 24 hour uptake is within normal range. TECHNICAL DOCUMENTATION: JOB ID: [id number] [employer]- All Rights Reserved Reading location - IP/workstation name: [email or web address]
[2018-02-26] MEDS ORDERED: PIPERACILLIN SODIUM/TAZOBACTAM 3.375 GM in NORMAL SALINE 100 ML IV SCH (12:00)
[2018-02-26 15:29] VITALS: BP 158/82
--- NOTE | 2018-02-28 08:22 | PDOC DISCHARGE SUMMARY ---
General - Admit/Disc Date/PCP Admission Date/Primary Care Provider: 02/24/18 01:51 Discharge Date: 02/26/18 - Discharge Diagnosis (1) Graves disease Is this a current diagnosis for this admission?: Yes Summary: Undetectable TSH, free T4 6.87, free T3 >22.80 ESR 27, CRP 17.4 Thyroid U/S demonstrated an enlarged heterogeneous appearing thyroid with no discrete masses identified. Echocardiogram has been completed; normal exam. Radioiodine uptake study revealed an elevated 4-hour uptake of 24.48% and a normal 24-hour uptake of 18.39%. Thyroid antibodies elevated; Thyroglobulin 6.1, Thyroid Peroxidase >600. The patient was placed on methimazole and propanolol. Her propanolol dose was increased slightly from 20 mg twice daily to 20 mg every 8 hours for persistent mild tachycardia (heart rate of 100-115 at rest). Discussed the patient's case with Dr. Balderas [facility] endocrinology. She recommended increasing methimazole to 30 mg once daily at discharge and to continue propanolol. She has arranged for the patient to follow up in their clinic on 03/11/2018 at 11:15 AM. At time of discharge, the patient was in stable condition and asymptomatic. She remains slightly tachycardic with a heart rate of 90-110 while at rest. Her propanolol was increased yesterday. She is advised to take a copy of her lab work and imaging studies to her follow-up appointment with Dr. Hayley Magdaleno on the . She is provided prescriptions for methimazole and propanolol. She is further advised of the importance of establishing with a local primary care provider. She is encouraged to return to the emergency department as needed for any concerning symptoms. (2) Tachycardia Is this a current diagnosis for this admission?: Yes Summary: Secondary to #1; improved with propanolol. Patient is provided a prescription for propranolol 20 mg every 8 hours at discharge. (3) Asthma Is this a current diagnosis for this admission?: Yes Summary: Stable and without exacerbation. Patient's home medication regiment was continued. (4) GERD (gastroesophageal reflux disease) Is this a current diagnosis for this admission?: Yes Summary: Stable; recommend reflux diet/precautions. May use OTC antacids as needed. Recommend follow-up with primary care provider for persistent symptoms. - Additional Information Resuscitation Status: Full Code Discharge Diet: Regular Discharge Activity: Activity As Tolerated, Balance Activity w/Rest Prescriptions: Methimazole [Northyx] 30 mg PO DAILY #30 tablet Propranolol HCl [Inderal 20 mg Tablet] 20 mg PO Q8 #90 tablet Home Medications: Albuterol Sulfate [Proair HFA Inhalation Aerosol 8.5 gm MDI] 1 puff IH Q4HP PRN 02/24/18 Beclomethasone Dipropionate [Qvar] 2 puff IH BID 02/24/18 Montelukast Sodium [Singulair 10 mg Tablet] 10 mg PO QPM 02/24/18 Acetaminophen [Tylenol 325 mg Tablet] 650 mg PO Q4HP PRN tablet 02/26/18 Methimazole [Northyx] 30 mg PO DAILY #30 tablet 02/26/18 Propranolol HCl [Inderal 20 mg Tablet] 20 mg PO Q8 #90 tablet 02/26/18 History of Present Illness History of Present Illness: Per H&P by Dr. Solis: KARI MIRZA is a 18 year old female with past medical history of asthma, GERD and eczema. She presents with 3 weeks of viral prodrome with arthralgia and nausea developed fever prompting evaluation in the emergency room where she has an unremarkable workup but during evaluation of tachycardia is found to have an undetected TSH and a T3 greater than 22. She is referred to the hospitalist for admission. She denies palpitations, heat or cold intolerance but has an obvious goiter. She denies family history, recreational drugs, [id number] medications, diet or weight loss supplementation. Physical Exam Vital Signs: Temp Pulse Resp BP Pulse Ox 98.6 F 97 18 158/82 H 96 02/26/18 15:28 02/26/18 15:28 02/26/18 15:28 02/26/18 15:28 02/26/18 15:28 Intake & Output 02/27/18 02/28/18 03/01/18 06:59 06:59 06:59 Intake Total 250 Balance 250 General appearance: PRESENT: no acute distress, obese, well-developed, well- nourished Head exam: PRESENT: atraumatic, normocephalic Eye exam: PRESENT: conjunctiva pink, EOMI, PERRLA. ABSENT: scleral icterus Ear exam: PRESENT: normal external ear exam Mouth exam: PRESENT: moist, tongue midline Neck exam: PRESENT: thyromegaly. ABSENT: carotid bruit, JVD, lymphadenopathy Respiratory exam: PRESENT: clear to auscultation corie. ABSENT: rales, rhonchi, wheezes Cardiovascular exam: PRESENT: RRR, +S1, +S2, tachycardia - HR <110. ABSENT: diastolic murmur, rubs, systolic murmur Pulses: PRESENT: normal dorsalis pedis pul Vascular exam: PRESENT: normal capillary refill GI/Abdominal exam: PRESENT: normal bowel sounds, soft. ABSENT: distended, guarding, mass, organolmegaly, rebound, tenderness Rectal exam: PRESENT: deferred Extremities exam: PRESENT: full ROM. ABSENT: calf tenderness, clubbing, pedal edema Neurological exam: PRESENT: alert, awake, oriented to person, oriented to place, oriented to time, oriented to situation, CN II-XII grossly intact. ABSENT: motor sensory deficit Psychiatric exam: PRESENT: appropriate affect, normal mood. ABSENT: homicidal ideation, suicidal ideation Skin exam: PRESENT: dry, intact, warm. ABSENT: cyanosis, rash Results Laboratory Results: 02/26/18 05:36 02/26/18 05:36 02/23/18 02/23/18 17:35 17:35 Creatine Kinase 54 CK-MB (CK-2) < 0.22 Troponin I < 0.012 NT-Pro-B Natriuret Pep 176 H Impressions: Chest X-Ray 02/23/18 15:20 IMPRESSION: NO SIGNIFICANT RADIOGRAPHIC FINDING IN THE CHEST. Thyroid Ultrasound 02/24/18 00:00 IMPRESSION: 1. Enlarged heterogeneous appearing thyroid. No discrete mass identified. Thyroid Uptake & Scan NM 02/24/18 00:00 IMPRESSION: The 4 hour uptake cuff 24.48% is elevated. Normal range at 0400 hours is from 5 to 15%. 24 hour uptake is within normal range. Qualifiers - * PATIENT BEING DISCHARGED WITH ANY OF THE FOLLOWING DIAGNOSIS: No Plan Discharge Plan: Discharged home with self-care. Follow-up with primary care provider within 1 week. Follow-up with [facility] as scheduled 03/11/18. Return to the emergency department as needed for concerning symptoms.
== END 2018-02-26 16:33 | disposition home or self-care (01) | DRG 645 ==
LOC: ER 15:05 → EH 02-24 01:51 → 3S 02-24 04:44 → 4N 02-25 23:01
PROVIDERS: ADMIT Internal Medicine; ATTEND Internal Medicine
PROC: 3E0F73Z Introduction of Anti-inflammatory into Respiratory Tract, Via Natural or Artificial Opening (ICD-10-PCS; principal; 2018-02-24)
DX: E05.01 Thyrotoxicosis with diffuse goiter with thyrotoxic crisis or storm (principal); J45.909 Unspecified asthma, uncomplicated; K21.9 Gastro-esophageal reflux disease without esophagitis; L30.9 Dermatitis, unspecified; E66.01 Morbid (severe) obesity due to excess calories; Z79.899 Other long term (current) drug therapy; Z82.61 Family history of arthritis; Z83.3 Family history of diabetes mellitus; Z82.49 Family history of ischemic heart disease and other diseases of the circulatory system
CPT/HCPCS: 36415; 71046; 76536; 78014; 80048; 80053; 80307; 81001; 82550; 82553; 83036; 83690; 83880; 84439; 84443; 84481; 84484; 84703; 85025; 85027; 85379; 85652; 86140; 86376; 87040; 87070; 87077; 87186; 87804; 87880; 93005; 93010; 93306; 96361; 96374; 96375; 99285; A9516; J1644; J1885; J2405; J3370; J3490; J7030; J7060; J7120

== ENCOUNTER 2019-03-10 19:09 | Emergency (ER) | payer MEDICAID, OTHER ==
[2019-03-10] MEDS ORDERED: NORMAL SALINE 1000 ML 1,000 ML IV ONE (21:15)
--- NOTE | 2019-03-10 21:18 | ER Document Report ---
ED Medical Screen (RME) - General Chief Complaint: Difficulty Swallowing Stated Complaint: THROAT SWELLING,HIGH BLOOD PRESSURE Time Seen by Provider: 03/10/19 21:03 Notes: Patient is a 19-year-old female with a history of Graves' disease who presents emergency department with a chief complaint of throat swelling. Patient reports over the past 2 days she has had increase in throat swelling externally. Patient reports she does take propranolol as well as another medication but is not currently seeing blow down helper or primary care physician. Patient reports sore throat and a temperature of 101 at home. Patient reports it is very pain ful to swallow. TRAVEL OUTSIDE OF THE [place] IN LAST 30 DAYS: No - Related Data Allergies/Adverse Reactions: No Known Allergies Allergy (Verified 04/18/17 14:06) Home Medications: Propanolol Past Medical History - Social History Chew tobacco use (# tins/day): No Frequency of alcohol use: None Drug Abuse: None - Past Medical History Cardiac Medical History: Denies: Hx Coronary Artery Disease, Hx Heart Attack, Hx Hypertension Pulmonary Medical History: Reports: Hx Asthma - QVAR Denies: Hx Bronchitis, Hx COPD, Hx Pneumonia Neurological Medical History: Denies: Hx Cerebrovascular Accident, Hx Seizures Renal/ Medical History: Denies: Hx Peritoneal Dialysis GI Medical History: Reports: Hx Gastroesophageal Reflux Disease Musculoskeltal Medical History: Denies Hx Arthritis, Reports Hx Musculoskeletal Trauma - ankle Skin Medical History: Reports Hx Eczema Traumatic Medical History: Reports: Hx Fractures - ankle Past Surgical History: Reports: Hx Adenoidectomy, Hx Oral Surgery, Hx Tonsillectomy - Immunizations Immunizations up to date: Yes Hx Diphtheria, Pertussis, Tetanus Vaccination: Yes Physical Exam - Vital signs Vitals: Temp Pulse Resp BP Pulse Ox 98.2 F 129 H 16 162/86 H 98 03/10/19 19:15 03/10/19 19:15 03/10/19 19:15 03/10/19 19:15 03/10/19 19:15 Interpretation: Tachycardic Course - Re-evaluation Re-evalutation: 03/10/19 21:17 Patient was noted to be tachycardic at 129 in triage. Will order basic labs including a thyroid panel and a CT with IV contrast of the neck as she does have significant swelling externally. Airways patent at this time. Patient's voice is hoarse. 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 I have greeted and performed a rapid initial assessment of this patient. A comprehensive ED assessment and evaluation of the patient, analysis of test results and completion of the medical decision making process will be conducted by additional ED providers. - Vital Signs Vital signs: Temp Pulse Resp BP Pulse Ox 98.2 F 129 H 16 162/86 H 98 03/10/19 19:15 03/10/19 19:15 03/10/19 19:15 03/10/19 19:15 03/10/19 19:15
[2019-03-10 22:16] LABS: ABSOLUTE EOSINOPHILS # (AUTO) 0.3 10^3/uL (0.0-0.6); ABSOLUTE LYMPHOCYTES (AUTO) 2.9 10^3/uL (0.5-4.7); ABSOLUTE NEUT (AUTO) 6.9 10^3/uL (1.7-8.2); BASOPHILS % (AUTO) 0.4 % (0-2); EOSINOPHILS % (AUTO) 2.9 % (0-6); HEMATOCRIT 38.5 % (36.0-47.0); HEMOGLOBIN 12.6 g/dL (12.0-15.5); LYMPHOCYTES % (AUTO) 25.7 % (13-45); MEAN CORPUSCULAR HEMOGLOBIN 25.3 pg (27.0-33.4); MEAN CORPUSCULAR HGB CONC 32.8 g/dL (32.0-36.0); MEAN CORPUSCULAR VOLUME 77 fl (80-97); MONOCYTES % (AUTO) 9.4 % (3-13); PLATELET COUNT 309 10^3/uL (150-450); RED BLOOD COUNT 4.99 10^6/uL (3.72-5.28); RED CELL DISTRIBUTION WIDTH 14.5 % (11.5-14.0); SEGMENTED NEUTROPHILS % (AUTO) 61.6 % (42-78); TOTAL CELLS COUNTED % (AUTO) 100 %; WHITE BLOOD COUNT 11.1 10^3/uL (4.0-10.5)
[2019-03-10] MEDS ORDERED: DEXAMETHASONE SOD PHOS INJ 10 MG/1 ML VIAL IV ONE (22:20)
[2019-03-10 22:25] LABS: APPEARANCE,URINE CLEAR; BILIRUBIN,URINE NEGATIVE (NEGATIVE); COLOR,URINE YELLOW; GLUCOSE, URINE NEGATIVE (NEGATIVE); KETONES,URINE TRACE mg/dL (NEGATIVE); LEUKOCYTE ESTERASE,URINE SMALL (NEGATIVE); NITRITE,URINE NEGATIVE (NEGATIVE); PROTEIN,URINE NEGATIVE (NEGATIVE); URINE SPECIFIC GRAVITY 1.015
[2019-03-10 22:36] LABS: ALBUMIN 3.8 g/dL (3.5-5.0); ALKALINE PHOSPHATASE 81 U/L (38-126); ANION GAP 11 (5-19); ASPARTATE AMINO TRANSFERASE 24 U/L (14-36); BILIRUBIN,DIRECT 0.3 mg/dL (0.0-0.4); BILIRUBIN,TOTAL 0.4 mg/dL (0.2-1.3); BLOOD UREA NITROGEN 9 mg/dL (7-20); CALCIUM 9.1 mg/dL (8.4-10.2); CARBON DIOXIDE 25 mmol/L (22-30); CHLORIDE 102 mmol/L (98-107); GLUCOSE 79 mg/dL (75-110); POTASSIUM 4.1 mmol/L (3.6-5.0); TOTAL PROTEIN 7.4 g/dL (6.3-8.2)
[2019-03-10 22:53] LABS: FREE T4 (FREE THYROXINE) 6.66 ng/dL (0.78-2.19)
[2019-03-10 23:07] LABS: FREE T3 > 22.80 pg/mL (2.77-5.27); THYROID STIMULATING HORMONE < 0.01 uIU/mL (0.47-4.68)
--- NOTE | 2019-03-11 00:16 | RADIOLOGY REPORT (SQ) ---
EXAM DESCRIPTION: XR CHEST 1 VIEW COMPLETED DATE/TME: 03/10/2019 23:32 CLINICAL HISTORY: 19 years, Female, htn COMPARISON: None. NUMBER OF VIEWS: Single TECHNIQUE: LIMITATIONS: None. FINDINGS: Cardiomediastinal silhouette appears prominent. Interstitial prominence. No effusion. No pneumothorax IMPRESSION: Mild interstitial prominence. No focal airspace disease copyright 2011 [employer]- All Rights Reserved
--- NOTE | 2019-03-11 00:21 | RADIOLOGY REPORT (SQ) ---
EXAM DESCRIPTION: CT NECK WITH IV CONTRAST COMPLETED DATE/TME: 03/10/2019 21:12 CLINICAL HISTORY: 19 years, Female, hx. graves disease, goiter, neck swelling. CREAT 0.28 COMPARISON: None. TECHNIQUE: Contrast enhanced CT of the neck was performed. Coronal and sagittal reformations were created. Images were obtained after the uneventful administration of 76 mL of Omnipaque 350 intravenous contrast. Images stored on PACS. All CT scanners at this facility use dose modulation, iterative reconstruction, and/or weight based dosing when appropriate to reduce radiation dose to as low as reasonably achievable (ALARA). [facility]: Dose Right [facility]: CareDose [facility]: Dose Right [facility]: Teradose 4D [facility]: Zeomatrix LIMITATIONS: None. FINDINGS: Limited evaluation of the chest reveals clear lungs. Soft tissue density within the anterior mediastinum corresponds to residual thymus. The thyroid gland appears to enhance normally though it appears diffusely enlarged, better assessed on the previous thyroid ultrasound dated 02/24/2018. The hypopharynx appears normal. Assessment of the oropharynx/nasopharynx reveals significant enlargement of the adenoids extending inferiorly, especially on the left. The palatine tonsils do not appear significantly enlarged. However, there is mild frothy density located within the vallecula, likely indicating debris/secretions. Several small bilateral level IIb lymph nodes are noted. However, there is a single left level IIa lymph node which appears borderline enlarged located on image 38 of series 2, specifically measuring 1.0 x 1.7 cm in size. The retropharyngeal fat plane remains intact. Bilateral parotid and submandibular glands show no suspicious abnormality. Visualized vascular structures appeared opacify with contrast normally. Limited evaluation of the brain parenchyma reveals heterogenous hypodensity located about the bilateral cerebellar hemispheres. However, this is potentially artifactual as there are bands of artifact emanating through these areas on the coronal and sagittal reformations.. Globes and orbits show no suspicious normality. Paranasal sinuses and mastoid air cells are clear. Bone windows show reversal of the normal cervical lordosis. IMPRESSION: Significant adenoidal enlargement extending inferiorly along the posterior nasopharyngeal wall, especially on the left. Overall, the etiology of this finding is uncertain with infectious and inflammatory etiologies possible considerations. Borderline enlarged left level IIa lymph node, nonspecific. Ill-defined areas of hypodensity located about the bilateral cerebellar hemispheres, potentially artifactual given the presence of bands of artifact emanating through these areas on the coronal and sagittal reformations. Correlate with dedicated CT of the head for confirmation. Diffusely enlarged thyroid gland. This was better assessed on the previous sonographic examination dated 02/24/2018. TECHNICAL DOCUMENTATION: Quality ID # [id number]: Final reports with documentation of one or more dose reduction techniques (e.g., Automated exposure control, adjustment of the mA and/or kV according to patient size, use of iterative reconstruction technique) copyright 2011 [employer]- All Rights Reserved
--- NOTE | 2019-03-11 00:35 | ER Document Report ---
ED General - General Chief Complaint: Difficulty Swallowing Stated Complaint: THROAT SWELLING,HIGH BLOOD PRESSURE Time Seen by Provider: 03/10/19 21:03 TRAVEL OUTSIDE OF THE [place] IN LAST 30 DAYS: No - HPI Onset: Last week Onset/Duration: Gradual Severity: Moderate Pain Level: Denies Context: 19 year old female arrives with complaints of increasing size of known goiter - known Graves disease pt - that has been out of her propranolol since September. Has no PCP. Denies chest pain or sob. She has no gi symptoms - normal bowel movements without diarrhea. No fever or chills. Exacerbated by: Denies Relieved by: Denies Similar symptoms previously: Yes Recently seen / treated by doctor: No - Related Data Allergies/Adverse Reactions: No Known Allergies Allergy (Verified 04/18/17 14:06) Home Medications: Propanolol Past Medical History - Social History Smoking Status: Never Smoker Chew tobacco use (# tins/day): No Frequency of alcohol use: None Drug Abuse: None Family History: Arthritis, DM, Hypertension, Other - afib, ards Patient has suicidal ideation: No Patient has homicidal ideation: No - Past Medical History Cardiac Medical History: Denies: Hx Coronary Artery Disease, Hx Heart Attack, Hx Hypertension Pulmonary Medical History: Reports: Hx Asthma - QVAR Denies: Hx Bronchitis, Hx COPD, Hx Pneumonia Neurological Medical History: Denies: Hx Cerebrovascular Accident, Hx Seizures Renal/ Medical History: Denies: Hx Peritoneal Dialysis GI Medical History: Reports: Hx Gastroesophageal Reflux Disease Musculoskeletal Medical History: Denies Hx Arthritis, Reports Hx Musculoskeletal Trauma - ankle Skin Medical History: Reports Hx Eczema Traumatic Medical History: Reports: Hx Fractures - ankle Past Surgical History: Reports: Hx Adenoidectomy, Hx Oral Surgery, Hx Tonsillectomy - Immunizations Immunizations up to date: Yes Hx Diphtheria, Pertussis, Tetanus Vaccination: Yes Review of Systems - Review of Systems Constitutional: No symptoms reported EENT: No symptoms reported Cardiovascular: No symptoms reported Respiratory: No symptoms reported Gastrointestinal: No symptoms reported. denies: Abdominal pain, Diarrhea Genitourinary: No symptoms reported Female Genitourinary: No symptoms reported Musculoskeletal: No symptoms reported Skin: No symptoms reported Hematologic/Lymphatic: No symptoms reported Neurological/Psychological: No symptoms reported, Other - no agitation Physical Exam - Vital signs Vitals: Temp Pulse Resp BP Pulse Ox 98.2 F 129 H 16 162/86 H 98 03/10/19 19:15 03/10/19 19:15 03/10/19 19:15 03/10/19 19:15 03/10/19 19:15 Interpretation: Normal - General General appearance: Appears well, Alert - HEENT Head: Normocephalic, Atraumatic Eyes: Normal Pupils: PERRL - Respiratory Respiratory status: No respiratory distress Chest status: Nontender Breath sounds: Normal Chest palpation: Normal - Cardiovascular Rhythm: Regular, Tachycardia - mild tachycardia 102 on my exam Heart sounds: Normal auscultation Murmur: No - Abdominal Inspection: Normal Distension: No distension Bowel sounds: Normal Tenderness: Nontender Organomegaly: No organomegaly - Back Back: Normal, Nontender - Extremities General upper extremity: Normal inspection, Nontender, Normal color, Normal ROM, Normal temperature General lower extremity: Normal inspection, Nontender, Normal color, Normal ROM, Normal temperature, Normal weight bearing. No: Sravanthi's sign - Neurological Neuro grossly intact: Yes Cognition: Normal Orientation: AAOx4 Judd Coma Scale Eye Opening: Spontaneous Grass[place] Coma Scale Verbal: Oriented Grassflat Coma Scale Motor: Obeys Commands Judd Coma Scale Total: 15 Speech: Normal Motor strength normal: LUE, RUE, LLE, RLE Sensory: Normal - Psychological Associated symptoms: Normal affect, Normal mood - Skin Skin Temperature: Warm Skin Moisture: Dry Skin Color: Normal Course - Re-evaluation Re-evalutation: 03/11/19 00:31 MDM 19 year old with known thyroid disease is here with enlarging goiter - no meds since September - and some uncomfortableness with swallowing. No fever or chills. No sick contacts. While thyroid storm was considered she has no evidence of this - Of the diagnostic criteria on Up to Date she would score a 5 with scores < 25 being doubtful for thyroid storm. Mom is here with her and will ensure follow up she tells me. I feel follow up is reasonable and have discussed with the pt and mom they expressed understanding. Ct is largely nonspecific and I feel it is reasonable for this follow up to be with pcp. - Vital Signs Vital signs: Temp Pulse Resp BP Pulse Ox 98.7 F 99 17 124/88 H 100 03/11/19 02:53 03/11/19 02:53 03/11/19 02:53 03/11/19 02:53 03/11/19 02:53 - Laboratory Result Diagrams: 03/10/19 21:57 03/10/19 21:57 Laboratory results interpreted by me: 03/10/19 03/10/19 03/10/19 21:57 21:57 21:57 WBC 11.1 H MCV 77 L MCH 25.3 L RDW 14.5 H Creatinine 0.28 L TSH < 0.01 L Free T4 6.66 H Free T3 pg/mL > 22.80 H Urine Ketones Urine Urobilinogen Ur Leukocyte Esterase 03/10/19 21:57 WBC MCV MCH RDW Creatinine TSH Free T4 Free T3 pg/mL Urine Ketones TRACE H Urine Urobilinogen 4.0 H Ur Leukocyte Esterase SMALL H - Diagnostic Test Radiology reviewed: Reports reviewed Discharge - Discharge Clinical Impression: Graves disease, Medical non-compliance, Tachycardia Condition: Good Disposition: HOME, SELF-CARE Instructions: Family Physicians / Practices, Hyperthyroidism ([facility]) Additional Instructions: See your doctor or pick a family doctor in followup. Take the propranolol as directed. Please return here for any problems or any concerns. Discuss the Ct results with your primary doctor to decide whether a follow up with an Ear Nose and throat doctor is needed. Prescriptions: Propranolol HCl [Inderal 20 mg Tablet] 20 mg PO TID #60 tablet
[2019-03-11] MEDS ORDERED: PROPRANOLOL HCL 40 MG TABLET PO ONE (01:42)
[2019-03-11] MEDS ORDERED: PROPRANOLOL HCL 40 MG TABLET ONE (02:35)
[2019-03-11 02:54] VITALS: BP 124/88
== END 2019-03-11 02:46 | disposition home or self-care (01) ==
LOC: ER 19:09
DX: E05.00 Thyrotoxicosis with diffuse goiter without thyrotoxic crisis or storm (principal); R00.0 Tachycardia, unspecified; Z91.14 Patient's other noncompliance with medication regimen
CPT/HCPCS: 99284; 96361; 96374; 36415; 87070; 84439; 87880; 84443; 85025; 81025; 80053; 81001; 84481; 71045; 70491; J3490; J7030; J1100

== ENCOUNTER 2019-08-08 23:10 | Emergency (ER) | payer MEDICAID ==
[2019-08-08 23:47] VITALS: BP 152/87
== END 2019-08-09 02:02 | disposition left against medical advice (07) ==
LOC: ER 23:10
DX: Z53.21 Procedure and treatment not carried out due to patient leaving prior to being seen by health care provider (principal)

== ENCOUNTER 2019-09-22 18:14 | Emergency (ER) | payer MEDICAID ==
[2019-09-22 20:36] LABS: ABSOLUTE EOSINOPHILS # (AUTO) 0.3 10^3/uL (0.0-0.6); ABSOLUTE LYMPHOCYTES (AUTO) 3.3 10^3/uL (0.5-4.7); ABSOLUTE MONOCYTES (AUTO) 1.3 10^3/uL (0.1-1.4); ABSOLUTE NEUT (AUTO) 10.7 10^3/uL (1.7-8.2); BASOPHILS % (AUTO) 0.3 % (0-2); HEMATOCRIT 40.6 % (36.0-47.0); HEMOGLOBIN 13.4 g/dL (12.0-15.5); MEAN CORPUSCULAR HEMOGLOBIN 26.5 pg (27.0-33.4); MEAN CORPUSCULAR VOLUME 80 fl (80-97); MONOCYTES % (AUTO) 8.6 % (3-13); PLATELET COUNT 318 10^3/uL (150-450); RED BLOOD COUNT 5.05 10^6/uL (3.72-5.28); RED CELL DISTRIBUTION WIDTH 16.4 % (11.5-14.0); SEGMENTED NEUTROPHILS % (AUTO) 68.1 % (42-78); TOTAL CELLS COUNTED % (AUTO) 100 %; WHITE BLOOD COUNT 15.7 10^3/uL (4.0-10.5)
[2019-09-22 20:37] VITALS: BP 139/68
[2019-09-22 20:50] LABS: ALBUMIN 4.4 g/dL (3.5-5.0); ALKALINE PHOSPHATASE 94 U/L (38-126); ANION GAP 6 (5-19); ASPARTATE AMINO TRANSFERASE 20 U/L (14-36); BILIRUBIN,TOTAL 0.4 mg/dL (0.2-1.3); BLOOD UREA NITROGEN 12 mg/dL (7-20); CALCIUM 9.2 mg/dL (8.4-10.2); CARBON DIOXIDE 25 mmol/L (22-30); CHLORIDE 104 mmol/L (98-107); GLUCOSE 85 mg/dL (75-110); POTASSIUM 4.3 mmol/L (3.6-5.0); TOTAL PROTEIN 8.1 g/dL (6.3-8.2)
--- NOTE | 2019-09-22 20:50 | ER Document Report ---
ED General - General Chief Complaint: Nausea/Vomiting/Diarrhea Stated Complaint: FEVER/NAUSEA/DIARRHEA Time Seen by Provider: 09/22/19 20:10 Mode of Arrival: Ambulatory Information source: Patient Notes: Patient is a 19-year-old female with past medical history of hyperthyroidism presenting to the emergency department with nausea. Patient reports she saw her primary care provider 3 days ago to have blood drawn for her hyperthyroidism. She states today they called her and told her her white blood count was slightly elevated and they wanted her to come to the emergency department. Patient reports she has had nausea over the last few days, a few episodes of diarrhea yesterday but no other symptoms. She denies any pain, cough, congestion, vomiting, dysuria. TRAVEL OUTSIDE OF THE [place] IN LAST 30 DAYS: No - Related Data Allergies/Adverse Reactions: No Known Allergies Allergy (Verified 04/18/17 14:06) Past Medical History - General Information source: Patient - Social History Smoking Status: Never Smoker Frequency of alcohol use: None Drug Abuse: None Family History: Arthritis, DM, Hypertension, Other - afib, ards Patient has homicidal ideation: No - Past Medical History Cardiac Medical History: Denies: Hx Coronary Artery Disease, Hx Heart Attack, Hx Hypertension Pulmonary Medical History: Reports: Hx Asthma - QVAR Denies: Hx Bronchitis, Hx COPD, Hx Pneumonia Neurological Medical History: Denies: Hx Cerebrovascular Accident, Hx Seizures Endocrine Medical History: Reports: Hx Hyperthyroidism Renal/ Medical History: Denies: Hx Peritoneal Dialysis GI Medical History: Reports: Hx Gastroesophageal Reflux Disease Musculoskeletal Medical History: Denies Hx Arthritis, Reports Hx Musculoskeletal Trauma - ankle Skin Medical History: Reports Hx Eczema Traumatic Medical History: Reports: Hx Fractures - ankle Past Surgical History: Reports: Hx Adenoidectomy, Hx Oral Surgery, Hx Tonsillectomy - Immunizations Immunizations up to date: Yes Hx Diphtheria, Pertussis, Tetanus Vaccination: Yes Review of Systems - Review of Systems Constitutional: Other - Fatigue EENT: No symptoms reported Cardiovascular: No symptoms reported Respiratory: No symptoms reported Gastrointestinal: Diarrhea - yesterday, none today, Nausea Genitourinary: No symptoms reported Female Genitourinary: No symptoms reported Musculoskeletal: No symptoms reported Skin: No symptoms reported Hematologic/Lymphatic: No symptoms reported Neurological/Psychological: No symptoms reported Physical Exam - Vital signs Vitals: Temp Pulse Resp BP Pulse Ox 98.8 F 76 16 139/68 H 100 09/22/19 20:31 09/22/19 20:31 09/22/19 20:31 09/22/19 20:31 09/22/19 20:31 - Notes Notes: PHYSICAL EXAMINATION: GENERAL: Well-appearing, well-nourished and in no acute distress. HEAD: Atraumatic, normocephalic. EYES: Pupils equal round and reactive to light, extraocular movements intact, conjunctiva are normal. ENT: Nares patent, oropharynx clear without exudates. Moist mucous membranes. NECK: Normal range of motion, supple without lymphadenopathy LUNGS: Breath sounds clear to auscultation bilaterally and equal. No wheezes rales or rhonchi. HEART: Regular rate and rhythm without murmurs ABDOMEN: Soft, nontender, nondistended abdomen. No guarding, no rebound. No masses appreciated. Female : deferred Musculoskeletal: Normal range of motion, no pitting or edema. No cyanosis. NEUROLOGICAL: Cranial nerves grossly intact. Normal speech, normal gait. Normal sensory, motor exams PSYCH: Normal mood, normal affect. SKIN: Warm, Dry, normal turgor, no rashes or lesions noted. Course - Re-evaluation Re-evalutation: 09/22/19 21:44 Laboratory 09/22/19 09/22/19 09/22/19 20:15 20:15 20:15 WBC 15.7 H RBC 5.05 Hgb 13.4 Hct 40.6 MCV 80 MCH 26.5 L MCHC 33.0 RDW 16.4 H Plt Count 318 Lymph % (Auto) 21.0 Kane % (Auto) 8.6 Eos % (Auto) 2.0 Baso % (Auto) 0.3 Absolute Neuts (auto) 10.7 H Absolute Lymphs (auto) 3.3 Absolute Monos (auto) 1.3 Absolute Eos (auto) 0.3 Absolute Basos (auto) 0.0 Seg Neutrophils % 68.1 Sodium 135.3 L Potassium 4.3 Chloride 104 Carbon Dioxide 25 Anion Gap 6 BUN 12 Creatinine 0.56 Est GFR ( Amer) > 60 Est GFR (MDRD) Non-Af > 60 Glucose 85 Calcium 9.2 Total Bilirubin 0.4 Direct Bilirubin 0.0 Neonat Total Bilirubin Not Reportable Neonat Direct Bilirubin Not Reportable Neonat Indirect Bili Not Reportable AST 20 ALT 20 Alkaline Phosphatase 94 Total Protein 8.1 Albumin 4.4 Urine Color YELLOW Urine Appearance SLIGHTLY-CLOUDY Urine pH 7.0 Ur Specific [place] 1.025 Urine Protein NEGATIVE Urine Glucose (UA) NEGATIVE Urine Ketones NEGATIVE Urine Blood NEGATIVE Urine Nitrite NEGATIVE Urine Bilirubin NEGATIVE Urine Urobilinogen 2.0 H Ur Leukocyte Esterase TRACE H Urine WBC (Auto) 9 Urine RBC (Auto) 2 Squamous Epi Cells Auto 5 Urine Mucus (Auto) RARE Urine Ascorbic Acid NEGATIVE Urine HCG, Qual NEGATIVE Labs as recorded above. Urine culture added. No source of infection, vitals normal and patient has no complaints. Discussed with Dr. Miller. COVID test performed per patient request. Will d/c patient home with ED return precautions. - Vital Signs Vital signs: Temp Pulse Resp BP Pulse Ox 98.8 F 76 16 139/68 H 100 09/22/19 20:31 09/22/19 20:31 09/22/19 20:31 09/22/19 20:31 09/22/19 20:31 - Laboratory Result Diagrams: 09/22/19 20:15 09/22/19 20:15 Laboratory results interpreted by me: 09/22/19 09/22/19 09/22/19 20:15 20:15 20:15 WBC 15.7 H MCH 26.5 L RDW 16.4 H Absolute Neuts (auto) 10.7 H Sodium 135.3 L Urine Urobilinogen 2.0 H Ur Leukocyte Esterase TRACE H Discharge - Discharge Clinical Impression: Nausea, Encounter for laboratory testing for COVID-19 virus Leukocytosis, unspecified Qualifiers: Leukocytosis type: unspecified Qualified Code(s): D72.829 - Elevated white blood cell count, unspecified Diarrhea Qualifiers: Diarrhea type: unspecified type Qualified Code(s): R19.7 - Diarrhea, unspecif ied Condition: Stable Disposition: HOME, SELF-CARE Additional Instructions: You were tested today for COVID-19. Please follow-up the instructional sheet included in your discharge packet. You must self quarantine until you receive your test results. The health department should call you with these in 2 to 3 days. Use the Zofran as prescribed for nausea. Return to the emergency department with any new or worsening symptoms to include development of fever, persistent vomiting or any other concerning symptoms. Prescriptions: Ondansetron [Zofran Odt 4 mg Tablet] 1 - 2 tab PO Q4H PRN #15 tab.rapdis PRN Reason: For Nausea/Vomiting Forms: Return to Work Referrals: JINNY ROMERO MD [NO LOCAL MD] - Follow up as needed
[2019-09-22 20:53] LABS: APPEARANCE,URINE SLIGHTLY-CLOUDY; BILIRUBIN,URINE NEGATIVE (NEGATIVE); COLOR,URINE YELLOW; GLUCOSE, URINE NEGATIVE (NEGATIVE); KETONES,URINE NEGATIVE (NEGATIVE); LEUKOCYTE ESTERASE,URINE TRACE (NEGATIVE); NITRITE,URINE NEGATIVE (NEGATIVE); PROTEIN,URINE NEGATIVE (NEGATIVE); URINE SPECIFIC GRAVITY 1.025
[2019-09-22] MEDS ORDERED: ONDANSETRON ODT 4 MG TAB (6 TAB/ER DISP) PO PRN (21:35)
== END 2019-09-22 21:30 | disposition home or self-care (01) ==
LOC: ER 18:14
DX: R11.0 Nausea (principal); R19.7 Diarrhea, unspecified; D72.829 Elevated white blood cell count, unspecified; J45.909 Unspecified asthma, uncomplicated; R53.83 Other fatigue; Z20.828 Contact with and (suspected) exposure to other viral communicable diseases
CPT/HCPCS: 99283; 36415; 87086; 85025; 87635; 81025; 87088; 80053; 81001; C9803

== ENCOUNTER 2019-11-29 19:04 | Emergency (ER) | payer SELFPAY ==
--- NOTE | 2019-11-29 19:48 | ER Document Report ---
ED Medical Screen (RME) - General Chief Complaint: Vaginal Bleeding Stated Complaint: VAGNAL BLEEDING Time Seen by Provider: 11/29/19 19:24 TRAVEL OUTSIDE OF THE [place] IN LAST 30 DAYS: No - HPI Notes: 11/29/19 19:46 19-year-old female presents to emergency room for complaints of vaginal bleeding for the last 2 days, states she is having heavy bleeds, with large clots. Reports that she does have the Nexplanon, she is unsure of her last menstrual cycle. She states she is going through 4 tampons an hour she suspects but she is not entirely sure. Denies . , has tried ibuprofen and Tylenol without relief. Patient was concerned because she states that this menstrual cycle seems to be heavier than the last. Denies any fevers or chills. Reports she is having suprapubic abdominal cramping. Denies any chest pain, shortness of breath nausea vomiting or diarrhea. I have greeted and performed a rapid initial assessment of this patient. A comprehensive ED assessment and evaluation of the patient, analysis of test results and completion of the medical decision making process will be conducted by additional ED providers. PHYSICAL EXAMINATION: GENERAL: Well-appearing, well-nourished and in no acute distress. CV: s1, s2 regular LUNGS: No respiratory distress abd: Prepubic abdominal tenderness, no CVA tenderness appreciated bilaterally - Related Data Allergies/Adverse Reactions: No Known Allergies Allergy (Verified 04/18/17 14:06) Past Medical History - Past Medical History Cardiac Medical History: Denies: Hx Coronary Artery Disease, Hx Heart Attack, Hx Hypertension Pulmonary Medical History: Reports: Hx Asthma - QVAR Denies: Hx Bronchitis, Hx COPD, Hx Pneumonia Neurological Medical History: Denies: Hx Cerebrovascular Accident, Hx Seizures Endocrine Medical History: Reports: Hx Hyperthyroidism Renal/ Medical History: Denies: Hx Peritoneal Dialysis GI Medical History: Reports: Hx Gastroesophageal Reflux Disease Musculoskeltal Medical History: Denies Hx Arthritis, Reports Hx Musculoskeletal Trauma - ankle Skin Medical History: Reports Hx Eczema Traumatic Medical History: Reports: Hx Fractures - ankle Past Surgical History: Reports: Hx Adenoidectomy, Hx Oral Surgery, Hx Tonsillectomy - Immunizations Immunizations up to date: Yes Hx Diphtheria, Pertussis, Tetanus Vaccination: Yes Physical Exam - Vital signs Vitals: Temp Pulse Resp BP Pulse Ox 98.3 F 112 H 18 164/73 H 98 11/29/19 19:09 11/29/19 19:09 11/29/19 19:09 11/29/19 19:09 11/29/19 19:09 Course - Vital Signs Vital signs: Temp Pulse Resp BP Pulse Ox 98.3 F 112 H 18 164/73 H 98 11/29/19 19:09 11/29/19 19:09 11/29/19 19:09 11/29/19 19:09 11/29/19 19:09
[2019-11-29 20:50] LABS: ABSOLUTE EOSINOPHILS # (AUTO) 0.2 10^3/uL (0.0-0.6); ABSOLUTE LYMPHOCYTES (AUTO) 2.6 10^3/uL (0.5-4.7); ABSOLUTE NEUT (AUTO) 6.4 10^3/uL (1.7-8.2); BASOPHILS % (AUTO) 0.4 % (0-2); EOSINOPHILS % (AUTO) 1.7 % (0-6); HEMATOCRIT 41.5 % (36.0-47.0); HEMOGLOBIN 13.8 g/dL (12.0-15.5); LYMPHOCYTES % (AUTO) 25.7 % (13-45); MEAN CORPUSCULAR HEMOGLOBIN 27.5 pg (27.0-33.4); MEAN CORPUSCULAR HGB CONC 33.2 g/dL (32.0-36.0); MEAN CORPUSCULAR VOLUME 83 fl (80-97); MONOCYTES % (AUTO) 9.3 % (3-13); PLATELET COUNT 253 10^3/uL (150-450); RED BLOOD COUNT 5.01 10^6/uL (3.72-5.28); RED CELL DISTRIBUTION WIDTH 14.7 % (11.5-14.0); SEGMENTED NEUTROPHILS % (AUTO) 62.9 % (42-78); TOTAL CELLS COUNTED % (AUTO) 100 %; WHITE BLOOD COUNT 10.3 10^3/uL (4.0-10.5)
[2019-11-29 20:59] LABS: APPEARANCE,URINE SLIGHTLY-CLOUDY; BILIRUBIN,URINE NEGATIVE (NEGATIVE); COLOR,URINE YELLOW; GLUCOSE, URINE NEGATIVE (NEGATIVE); KETONES,URINE NEGATIVE (NEGATIVE); PROTEIN,URINE 100 mg/dL (NEGATIVE); URINE SPECIFIC GRAVITY 1.012; UROBILINOGEN,URINE NEGATIVE mg/dL (<2.0)
--- NOTE | 2019-11-29 21:10 | ER Document Report ---
ED GI/ - General Chief Complaint: Vaginal Bleeding Stated Complaint: VAGINAL BLEEDING Time Seen by Provider: 11/29/19 19:24 Notes: CHIEF COMPLAINT: Vaginal bleeding for 2 days HPI: 19-year-old female presenting for vaginal bleeding for 2 days. States she has been changing her menstrual pad every 1/2 hour to hour today. No chest pain shortness of breath. Patient did have a positive Covid test 2 weeks ago but is asymptomatic. Patient states when she had the Covid test she had lost sense of taste and smell. She states that has come back. Reports mild pelvic cramping. Patient has Nexplanon and has not had a menstrual cycle in 3 months. ROS: See HPI - all other systems were reviewed and are otherwise negative Constitutional: no fever or recent illness Eyes: no drainage, no blurred vision ENT: no runny nose, no sore throat Cardiovascular: no chest pain Resp: no SOB, no cough GI: no vomiting, no diarrhea : no dysuria, no vaginal discharge, positive vaginal bleeding Integumentary: no rash Allergy: no hives Musculoskeletal: no extremity pain or swelling Neurological: no numbness/tingling, no weakness MEDICATIONS: I agree with the patient medications as charted by the RN. ALLERGIES: I agree with the allergies as charted by the RN. PAST MEDICAL HISTORY/PAST SURGICAL HISTORY: Reviewed and agree as charted by RN. SOCIAL HISTORY: Reviewed and agree as charted by RN. FAMILY HISTORY: No significant familial comorbid conditions directly related to patient complaint EXAM: Reviewed vital signs as charted by RN. CONSTITUTIONAL: Alert and oriented and responds appropriately to questions. Well-appearing; well-nourished HEAD: Normocephalic; atraumatic EYES: PERRL; Conjunctivae clear, sclerae non-icteric ENT: normal nose; no rhinorrhea; moist mucous membranes; pharynx without lesions noted NECK: Supple without meningismus; non-tender; no cervical lymphadenopathy, no masses CARD: Mild tachycardia; no murmurs, no clicks, no rubs, no gallops; symmetric distal pulses RESP: Normal chest excursion without splinting or tachypnea; breath sounds clear and equal bilaterally; no wheezes, no rhonchi, no rales, 98% on room air not hypoxic ABD/GI: Normal bowel sounds; non-distended; soft, non-tender, no rebound, no gua rding; no palpable organomegaly or masses : Female nurse vp integrity present. External genitalia normal. No skin lesions noted. Pelvic Exam: No active bleeding but there is a very scant amount of red blood in the vaginal vault, no clots. No purulent discharge. Cervix appears normal. No CMT. No lesions or masses. Uterus normal size and non tender. Right/Left adnexa normal size and non tender. BACK: The back appears normal and is non-tender to palpation, there is no CVA tenderness EXT: Normal ROM in all joints; non-tender to palpation; no cyanosis, no effusions, no edema SKIN: Normal color for age and race; warm; dry; good turgor; no acute lesions noted NEURO: Moves all extremities equally; Motor and sensory function intact PSYCH: The patient's mood and manner are appropriate. Grooming and personal hygiene are appropriate. MDM: 19-year-old female vaginal bleeding for 2 days. Has not had a menstrual cycle in 3 months. There was no significant active bleeding at the time of her exam. Labs and ultrasound ordered via triage process TRAVEL OUTSIDE OF THE [place] IN LAST 30 DAYS: No - Related Data Allergies/Adverse Reactions: No Known Allergies Allergy (Verified 04/18/17 14:06) Past Medical History - Social History Smoking Status: Unknown if Ever Smoked Family History: Arthritis, DM, Hypertension, Other - afib, ards - Past Medical History Cardiac Medical History: Denies: Hx Coronary Artery Disease, Hx Heart Attack, Hx Hypertension Pulmonary Medical History: Reports: Hx Asthma - QVAR Denies: Hx Bronchitis, Hx COPD, Hx Pneumonia Neurological Medical History: Denies: Hx Cerebrovascular Accident, Hx Seizures Endocrine Medical History: Reports: Hx Hyperthyroidism Renal/ Medical History: Denies: Hx Peritoneal Dialysis GI Medical History: Reports: Hx Gastroesophageal Reflux Disease Musculoskeletal Medical History: Denies Hx Arthritis, Reports Hx Musculoskeletal Trauma - ankle Skin Medical History: Reports Hx Eczema Traumatic Medical History: Reports: Hx Fractures - ankle Past Surgical History: Reports: Hx Adenoidectomy, Hx Oral Surgery, Hx Tonsillectomy - Immunizations Immunizations up to date: Yes Hx Diphtheria, Pertussis, Tetanus Vaccination: Yes Physical Exam - Vital signs Vitals: Temp Pulse Resp BP Pulse Ox 98.3 F 112 H 18 164/73 H 98 11/29/19 19:09 11/29/19 19:09 11/29/19 19:09 11/29/19 19:09 11/29/19 19:09 Course - Re-evaluation Re-evalutation: 11/29/19 22:26 Patient ultrasound does not show acute emergent abnormality. Patient's labs do not show acute emergent abnormalities although she does have vaginitis. Will treat with Flagyl. Will refer to POINT OF CARE TECHNICIAN for follow-up bleeding precautions discussed - Vital Signs Vital signs: Temp Pulse Resp BP Pulse Ox 98.3 F 112 H 18 164/73 H 98 11/29/19 19:09 11/29/19 19:09 11/29/19 19:09 11/29/19 19:09 11/29/19 19:09 - Laboratory Result Diagrams: 11/29/19 20:40 11/29/19 20:40 Laboratory results interpreted by me: 11/29/19 11/29/19 11/29/19 20:40 20:40 20:40 RDW 14.7 H Creatinine 0.38 L Urine Protein 100 H Urine Blood LARGE H Leukocyte Esterase Rfl TRACE H Urine Ascorbic Acid 40 H Discharge - Discharge Clinical Impression: Abnormal vaginal bleeding Vaginitis Qualifiers: Chronicity: acute Qualified Code(s): N76.0 - Acute vaginitis Condition: Stable Disposition: HOME, SELF-CARE Additional Instructions: Take the Flagyl to treat the vaginitis. Follow-up with POINT OF CARE TECHNICIAN for further evaluation of the abnormal vaginal bleeding. This is likely hormonal in nature as discussed. If you have significant vaginal bleeding where you are saturating greater than 2-3 pads per hour return for reevaluation Prescriptions: Metronidazole [Flagyl 500 mg Tablet] 500 mg PO BID #14 tablet Referrals: DORA JASON MD [ACTIVE PROVISIONAL STAFF] - Follow up as needed
[2019-11-29 21:16] LABS: T.VAGINALIS (WET MOUNT) NO TRICHOMONAS SEEN; YEAST (WET MOUNT) NO YEAST SEEN
[2019-11-29 21:17] LABS: ALBUMIN 3.8 g/dL (3.5-5.0); ALKALINE PHOSPHATASE 77 U/L (38-126); ANION GAP 9 (5-19); ASPARTATE AMINO TRANSFERASE 25 U/L (14-36); BILIRUBIN,DIRECT 0.3 mg/dL (0.0-0.4); BILIRUBIN,TOTAL 0.4 mg/dL (0.2-1.3); BLOOD UREA NITROGEN 9 mg/dL (7-20); CALCIUM 9.3 mg/dL (8.4-10.2); CARBON DIOXIDE 25 mmol/L (22-30); CHLORIDE 104 mmol/L (98-107); GLUCOSE 99 mg/dL (75-110); POTASSIUM 4.7 mmol/L (3.6-5.0); TOTAL PROTEIN 6.8 g/dL (6.3-8.2)
[2019-11-29 21:17] LABS: WBCS (WET MOUNT) 2+ WBCS SEEN
[2019-11-29 21:18] LABS: BACTERIA (WET MOUNT) 3+ BACTERIA SEEN; EPITHELIALS (WET MOUNT) 3+ EPITHELIALS SEEN; RBCS (WET MOUNT) 1+ RBCS SEEN
--- NOTE | 2019-11-29 22:12 | RADIOLOGY REPORT (SQ) ---
Ultrasound of the pelvis: 11/29/2019 9:09 PM CDT HISTORY: 19-year-old patient with vaginal bleeding. TECHNIQUE: Multiple grayscale and color Doppler images of the pelvis were obtained transabdominally and transvaginally. COMPARISON: None available FINDINGS: The uterus measures 6.9 x 5.5 x 4.0 cm. The endometrium measures 3-4 mm in thickness. No myometrial mass is seen. The right ovary measures 2.5 x 1.5 x 1.6 cm. The left ovary measures 3.9 x 3.9 x 3.0 cm. There are scattered probable physiologic cysts measuring up to 4.1 cm on the left and 9 mm on the right. Normal arterial waveforms were obtained from both ovaries. No free intraperitoneal fluid is seen within the posterior cul-de-sac. IMPRESSION: No sonographic abnormality is seen within the pelvis.
[2019-11-29] MEDS ORDERED: METRONIDAZOLE 500 MG TABLET PO ONE (22:20)
[2019-11-29 22:52] LABS: CHLAM PCR DETECTED (NOT DETECT)
[2019-11-29 23:06] VITALS: BP 129/64
[2019-11-29] MEDS ORDERED: AZITHROMYCIN 250 MG TABLET PO ONE (23:08)
== END 2019-11-29 23:22 | disposition home or self-care (01) ==
LOC: ER 19:04
DX: N93.9 Abnormal uterine and vaginal bleeding, unspecified (principal); A56.02 Chlamydial vulvovaginitis; R10.2 Pelvic and perineal pain; J45.909 Unspecified asthma, uncomplicated
CPT/HCPCS: 36415; 76830; 80053; 81001; 81025; 85025; 87210; 87491; 87591; 93976; 99284